=== PATIENT | male | born 1950 | race Asian ===

== ENCOUNTER 2016-08-05 18:09 | Emergency (ER) | payer OTHER ==
[2016-08-05] MEDS ORDERED: IOPAMIDOL 370 (76%) 100 ML VIAL IV ONE (18:10)
--- NOTE | 2016-08-05 18:52 | RAD ---
EXAMINATION:CHEST - 2 VIEWS CLINICAL INDICATION: Cough and fever COMPARISON: 06/15/2016. FINDINGS: Heart size remains normal. Aortic ectasia is unaltered. There is no adenopathy identified. There is no pleural effusion. Patchy basilar infiltrate in the right lower lung zone appears very similar to the prior study. Left lung remains relatively clear. No superimposed acute infiltrates identified. The osseous structures are unremarkable for age. IMPRESSION: Right basilar infiltrate/pneumonia similar to the prior examination. Senescent changes the mediastinum are stable. No superimposed acute process is identified.
[2016-08-05 19:22] LABS: ABSOLUTE NEUTROPHIL COUNT 6.6 K/mm3 (1.8-7.7); BASO % 0.4 % (0.2-1.0); EOS # 0.2 (0.0-0.5); EOS % 2.6 % (0.9-2.9); HEMOGLOBIN 13.7 gm/l (14.0-18.0); IMM NEUT% 0.3 % (0-1); LYMPH # 0.5 (1.0-4.8); LYMPH % 6.4 % (15-45); MEAN CELL VOLUME 85.5 fl (80.0-94.0); MEAN CORPUSCULAR HEMOGLOBIN 27.2 pg (27.0-31.0); MEAN CORPUSCULAR HGB CONC 31.9 g/dl (33.0-37.0); MEAN PLATELET VOLUME 8.8 fl (7.4-10.4); MONO # 0.6 (0.0-0.8); NEUT % 82.3 % (43-75); PLATELET COUNT 203 K/mm3 (130-400); RED CELL DISTRIBUTION WIDTH 14.9 % (11.5-14.5)
[2016-08-05 19:41] LABS: ALB/GLOB RATIO 1.3 (>1.0); ALBUMIN 3.7 gm/dL (3.5-5.7)
[2016-08-05] MEDS ORDERED: ACETAMINOPHEN 325 MG TABLET ONE (19:58)
[2016-08-05] MEDS ORDERED: IBUPROFEN 600 MG TABLET ONE (19:58)
[2016-08-05 19:59] LABS: URINE BILIRUBIN NEGATIVE (NEGATIVE); URINE BLOOD NEGATIVE (NEGATIVE); URINE GLUCOSE (UA) NEGATIVE (NEGATIVE); URINE LEUKOCYTE ESTERASE NEGATIVE (NEGATIVE); URINE NITRITE NEGATIVE (NEGATIVE); URINE PROTEIN NEGATIVE (NEGATIVE); URINE UROBILINOGEN NORMAL (0-1 mg/dl)
[2016-08-05] MEDS ORDERED: DOXYCYCLINE HYCLATE 100 MG TABLET ONE (19:59)
[2016-08-05] MEDS ORDERED: CEFTRIAXONE 1 GRAM DUPLEX 50 ML IV ONE (19:59)
[2016-08-05] MEDS ORDERED: LACTATED RINGERS 1,000 ML ONE (19:59)
[2016-08-05 20:03] LABS: URINE COLOR DARK YELLOW
[2016-08-05 20:04] LABS: URINE APPEARANCE CLEAR
--- NOTE | 2016-08-05 20:41 | CT ---
EXAMINATION: CT angiography of the thorax.CTA CHEST FOR PE INDICATION: Fever, tachycardia dyspnea. Persistent basilar opacity. COMPARISON: Chest radiograph dated 08/05/2016. TECHNIQUE: Helical scan mode CT of the Thorax after uneventful intravenous contrast administration of 80 ml of Isovue-370. Imaging device: redIT multidetector CT scan. Helically acquired stacked images were reviewed in the axial, sagittal and coronal planes. Additional 3-D postprocessing was performed and reconstructed images were acquired at the 3D [employer] workstation and reviewed as well. FINDINGS: The bolus is of good quality for diagnosis of pulmonary embolism. There are no pulmonary arterial filling defects. No vascular malformations are identified. The lung parenchyma: There is a cystic bronchiectasis in the right anterior upper lobe distribution abutting the mediastinum. There is bibasilar bronchiectasis in the periphery of the right middle lobe with a large cystic bronchiectasis in the right lower lobe as well. Peripheral bronchiectasis in involves the left lower lung zone with peripheral nodular opacities. No lobar consolidation is identified. There is mild hyperinflation. There is no pleural effusion. No pleural plaques are detected. Pleural effusion: No complex pleural effusion is identified.: Mediastinum: There is prominent subcarinal lymph node measuring 1 cm short axis dimension. Right hilar lymph node measures 1.2 x 1.2 cm. Left hilar lymph node measures 1.3 cm in short axis dimension. The thoracic inlet is unremarkable. Heart size is normal. There is no pericardial effusion. Osseus structures: No gross lytic or blastic lesions. Soft tissues: within normal limits Limited evaluation of the abdomen on this arterial phase injection reveals: no gross abnormalities. IMPRESSION: 1. Negative for pulmonary embolism. 2. Extensive severe bronchiectasis with some volume loss right greater than left. Peripheral peribronchial nodular opacities are noted giving a "tree in bud appearance". Differential possibilities in this instance include postinfectious changes including prior necrotizing pneumonia, granulomatous infection including tuberculosis/ atypical mycobacterial infection, allergic bronchopulmonary aspergillosis, chronic recurrent aspiration. 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 3. Apparent reactive lymphadenopathy involving the mediastinum. This likely due to the entities listed above. 4. Mild spondylosis changes of the thoracic spine. The findings were uploaded to the electronic medical record for review at approximately 8:41 PM 08/05/2016
== END 2016-08-05 23:37 | disposition short-term general hospital (02) ==
LOC: ED 18:09
DX: J18.9 Pneumonia, unspecified organism (principal); R00.0 Tachycardia, unspecified
CPT/HCPCS: 83605; 85025; 80053; 81003; 71020; 71275; 87804; 86901; 86850 ×3; 99285 ×2; 96361; 96365; 93005; A9270 ×3; J7120; Q9967; J0696